=== PATIENT | male | born 1960 | race Caucasian/White ===

== ENCOUNTER 2016-08-14 23:08 | Emergency (ER) | payer OTHER ==
[~2016-08-14] VITALS: Ht 172.7 cm; Wt 90.7 kg
--- NOTE | 2016-08-14 23:31 | NUR ---
PT FRANCISCO, AMBULATORY TO ER BED 6 PT STATES HE HAS NOT BEEN ABLE TO SLEEP IN 2 DAYS AND HAS BEEN HAVING A PANIC ATTACK TONIGHT. PT AOX4 RR EVEN AND UNLABORED. NO SOB NOTED. NAD NOTED. NO NVD AT THIS TIME. PT GOWNED AND PLACED ON MONITOR WAITING FOR MD ARSHAD.
--- NOTE | 2016-08-14 23:46 | NUR ---
PT APPEARS COMFORTABLE AND CALM AT THIS TIME. DENIES CP
--- NOTE | 2016-08-14 23:57 | NUR ---
DR. JACKSON AT BEDSIDE FOR EVAL.
--- NOTE | 2016-08-15 00:42 | NUR ---
Patient discharged to home in stable condition. Written and verbal after care instructions given. Patient verbalizes understanding of instruction. ambulatory with a steady gait
[2016-08-15 00:43] VITALS: BP 133/72
== END 2016-08-15 00:44 | disposition home or self-care (01) ==
LOC: ER 23:09
DX: F41.9 Anxiety disorder, unspecified (principal); Z86.73 Personal history of transient ischemic attack (TIA), and cerebral infarction without residual deficits; I10 Essential (primary) hypertension; Z88.5 Allergy status to narcotic agent; Z88.8 Allergy status to other drugs, medicaments and biological substances
CPT/HCPCS: A4606; Z7610